=== PATIENT | female | born 1960 | race Caucasian/White ===

== ENCOUNTER 2021-07-16 06:55 | Day surgery (SDC) | payer OTHER ==
[2021-07-16] MEDS ORDERED: Midazolam 1 MG/ML 2 ML SDV ONE (07:28)
[2021-07-16] MEDS ORDERED: Propofol 200 MG/20 ML SDV ONE (07:28)
[2021-07-16] MEDS ORDERED: fentaNYL 100 MCG/2 ML SDV ONE (07:28)
[2021-07-16] MEDS ORDERED: Sodium Chloride 0.9% 1,000 ML IV SCH (07:30)
[2021-07-16 09:28] VITALS: PULSE 59
[2021-07-16 09:29] VITALS: BP 114/73
== END 2021-07-16 09:50 | disposition home or self-care (01) ==
LOC: JP.SDS 06:55
PROVIDERS: ATTEND Surgery
DX: Z12.11 Encounter for screening for malignant neoplasm of colon (principal); K64.4 Residual hemorrhoidal skin tags; I10 Essential (primary) hypertension
CPT/HCPCS: J2250; J2704; J3010